=== PATIENT | male | born 1950 | race Caucasian/White ===

== ENCOUNTER → 2017-06-20 | Outpatient (CLI) | payer MEDICARE, BC ==
[~2017-06-20] MED LIST: AMLODIPINE; KEFLEX500 MG PO; LISINOPRIL40 MG PO; NIASPAN 500 MG500 M1 PO; PENTASA500 MG PO; TOPROL XL25 MG PO; ZANTAC 7575 MG PO
== END ==
LOC: M.RAD 15:10
DX: R05 Cough (principal)

== ENCOUNTER → 2018-07-01 | Outpatient (CLI) | payer MEDICARE, BC | LOC: M.RAD 13:59 | DX: J04.10 Acute tracheitis without obstruction (principal) ==